=== PATIENT | male | born 1950 | race Caucasian/White ===

== ENCOUNTER 2020-10-05 05:51 | Inpatient (IN) | payer MEDICARE, OTHER ==
[~2020-10-05] VITALS: Ht 167.6 cm; Wt 79.4 kg
[~2020-10-05 05:51] MED LIST: ANORO ELLIPTA1 EACH INH; BRILINTA 90 MG90 MG PO; ECOTRIN81 MG PO; ENALAPRIL MALE2.5 MG PO; GABAPENTIN PO; IMDUR ER TAB 3030 MG PO; KEFLEX CAP 500500 MG PO; LANTUS100 UNIT/1 SC; LANTUS100 UNIT/1 SQ; LOPRESSOR 25 MG25 MG PO; NITROGLYCERIN0.4 MG SL; PREDNISONE20 MG PO; TRAMADOL HCL50 MG PO; ZOCOR20 MG PO
[2020-10-05 06:51] LABS: HEMOGLOBIN 15.1 gm/dl (14.0-17.5); RED BLOOD COUNT 4.79 M/UL (4.20-5.50); WHITE BLOOD COUNT 21.6 K/UL (4.5-11.0)
[2020-10-05 07:12] LABS: BUN/CREATININE RATIO 17 (0-10)
[2020-10-05] MEDS ORDERED: VENTOLIN HFA 66.7 GM INH (09:42)
[2020-10-06 03:46] LABS: RED BLOOD COUNT 4.81 M/UL (4.20-5.50); WHITE BLOOD COUNT 22.1 K/UL (4.5-11.0)
[2020-10-07 04:04] LABS: HEMOGLOBIN 14.5 gm/dl (14.0-17.5); RED BLOOD COUNT 4.65 M/UL (4.20-5.50); WHITE BLOOD COUNT 18.1 K/UL (4.5-11.0)
[2020-10-10 06:21] LABS: RED BLOOD COUNT 3.92 M/UL (4.20-5.50); WHITE BLOOD COUNT 11.5 K/UL (4.5-11.0)
[2020-10-10 06:35] LABS: HEMOGLOBIN 12.2 gm/dl (14.0-17.5)
[2020-10-11 03:19] LABS: HEMOGLOBIN 11.5 gm/dl (14.0-17.5); RED BLOOD COUNT 3.71 M/UL (4.20-5.50)
[2020-10-12 04:18] LABS: HEMOGLOBIN 12.1 gm/dl (14.0-17.5); RED BLOOD COUNT 3.94 M/UL (4.20-5.50); WHITE BLOOD COUNT 11.5 K/UL (4.5-11.0)
[2020-10-13 02:26] LABS: HEMOGLOBIN 11.8 gm/dl (14.0-17.5); RED BLOOD COUNT 3.84 M/UL (4.20-5.50); WHITE BLOOD COUNT 11.5 K/UL (4.5-11.0)
[2020-10-13] MEDS ORDERED: ZYVOX600 MG PO (15:13)
[2020-10-13] MEDS ORDERED: PERCOCET 5/325 T1 EA PO (15:17)
== END 2020-10-13 17:34 | disposition home or self-care (01) | DRG 623 ==
LOC: ER1 05:51 → M/S 08:17 → CDU 08:17 → M/S 19:04
PROVIDERS: Emergency Medicine; Physician Assistant; Physician Assistant Medical; Podiatrist Foot & Ankle Surgery; ADMIT Internal Medicine
PROC: 0QBP0ZZ Excision of Left Metatarsal, Open Approach (ICD-10-PCS; 2020-10-09)
PROC: 2W3TX1Z Immobilization of Left Foot using Splint (ICD-10-PCS; 2020-10-09)
PROC: 0QBP0ZZ Excision of Left Metatarsal, Open Approach (ICD-10-PCS; principal; 2020-10-09 16:30)
PROC: 0HRNXJ3 Replacement of Left Foot Skin with Synthetic Substitute, Full Thickness, External Approach (ICD-10-PCS; 2020-10-09 16:30)
DX: E11.69 Type 2 diabetes mellitus with other specified complication (principal); M86.672 Other chronic osteomyelitis, left ankle and foot; E87.1 Hypo-osmolality and hyponatremia; L03.116 Cellulitis of left lower limb; E11.621 Type 2 diabetes mellitus with foot ulcer; Z20.822 Contact with and (suspected) exposure to COVID-19; B95.62 Methicillin resistant Staphylococcus aureus infection as the cause of diseases classified elsewhere; E78.5 Hyperlipidemia, unspecified; J44.9 Chronic obstructive pulmonary disease, unspecified; F17.210 Nicotine dependence, cigarettes, uncomplicated; M19.011 Primary osteoarthritis, right shoulder; M75.101 Unspecified rotator cuff tear or rupture of right shoulder, not specified as traumatic; I12.9 Hypertensive chronic kidney disease with stage 1 through stage 4 chronic kidney disease, or unspecified chronic kidney disease; E11.22 Type 2 diabetes mellitus with diabetic chronic kidney disease; D72.829 Elevated white blood cell count, unspecified; N18.30 Chronic kidney disease, stage 3 unspecified; E11.40 Type 2 diabetes mellitus with diabetic neuropathy, unspecified; S43.431A Superior glenoid labrum lesion of right shoulder, initial encounter; N17.9 Acute kidney failure, unspecified; Z84.89 Family history of other specified conditions; I25.2 Old myocardial infarction; Z95.5 Presence of coronary angioplasty implant and graft; Z89.422 Acquired absence of other left toe(s); Z79.82 Long term (current) use of aspirin; Z79.4 Long term (current) use of insulin; Z79.899 Other long term (current) drug therapy
CPT/HCPCS: 36415; 71045; 73060; 73090; 73218; 73630; 73718; 80048; 80053; 80202; 81001; 82550; 82553; 82570; 82962; 83036; 83735; 83874; 84156; 84484; 85025; 85027; 87070; 87077; 87186; 87205; 93005; 93926; 94640; 94664; 94760; 96365; 96366; 96367; 96376; 99285; J0692; J2250; J2543; J2795; J3010; J3370; J7030; J7070; J7120; Q4133; U0002

== ENCOUNTER 2020-11-19 18:29 | Inpatient (IN) | payer MEDICARE, OTHER ==
[~2020-11-19] VITALS: Ht 167.6 cm; Wt 108.4 kg
[~2020-11-19 18:29] MED LIST changes: +PERCOCET 5/325 T1 EA PO; +VENTOLIN HFA 66.7 GM INH; +ZYVOX600 MG PO
[2020-11-19 19:36] LABS: HEMOGLOBIN 7.8 gm/dl (14.0-17.5); RED BLOOD COUNT 2.56 M/UL (4.20-5.50); WHITE BLOOD COUNT 13.3 K/UL (4.5-11.0)
[2020-11-19] MEDS ORDERED: ULTRAM50 MG PO (23:44)
[2020-11-20 02:37] LABS: RED BLOOD COUNT 2.2 M/UL (4.20-5.50); WHITE BLOOD COUNT 8.8 K/UL (4.5-11.0)
[2020-11-20 02:39] LABS: HEMOGLOBIN 6.9 gm/dl (14.0-17.5)
[2020-11-20 07:36] LABS: HEMOGLOBIN 6.1 gm/dl (14.0-17.5)
[2020-11-20 21:23] LABS: HEMOGLOBIN 8.7 gm/dl (14.0-17.5)
[2020-11-21 04:52] LABS: HEMOGLOBIN 8.2 gm/dl (14.0-17.5); WHITE BLOOD COUNT 9.4 K/UL (4.5-11.0)
[2020-11-21 04:54] LABS: RED BLOOD COUNT 2.71 M/UL (4.20-5.50)
[2020-11-22 04:22] LABS: HEMOGLOBIN 8.7 gm/dl (14.0-17.5); RED BLOOD COUNT 2.88 M/UL (4.20-5.50)
[2020-11-22 04:24] LABS: WHITE BLOOD COUNT 12.8 K/UL (4.5-11.0)
[2020-11-22 09:10] LABS: COMPLEMENT C3, SERUM 106 mg/dL (82-167)
[2020-11-22 14:10] LABS: ANTI-DSDNA ANTIBODIES <1 IU/mL (0-9)
[2020-11-23 03:18] LABS: HEMOGLOBIN 8.5 gm/dl (14.0-17.5); RED BLOOD COUNT 2.76 M/UL (4.20-5.50); WHITE BLOOD COUNT 10.6 K/UL (4.5-11.0)
[2020-11-23 15:11] LABS: ALBUMIN 2.6 g/dL (2.9-4.4); ALPHA-1-GLOBULIN 0.3 g/dL (0.0-0.4); ALPHA-2-GLOBULIN 0.8 g/dL (0.4-1.0); BETA GLOBULIN 1.1 g/dL (0.7-1.3); GAMMA GLOBULIN 0.6 g/dL (0.4-1.8); GLOBULIN, TOTAL 2.8 g/dL (2.2-3.9); IMMUNOGLOBULIN A, QN, SERUM 497 mg/dL (61-437); IMMUNOGLOBULIN G, QN, SERUM 841 mg/dL (603-1613); IMMUNOGLOBULIN M, QN, SERUM 50 mg/dL (20-172); M-SPIKE Not Observed g/dL (Not Observed); PROTEIN, TOTAL, SERUM 5.4 g/dL (6.0-8.5)
[2020-11-24 07:05] LABS: HEMOGLOBIN 8.4 gm/dl (14.0-17.5); RED BLOOD COUNT 2.79 M/UL (4.20-5.50)
[2020-11-24 14:14] LABS: ANTIMYELOPEROXIDASE (MPO) ABS <9.0 U/mL (0.0-9.0); ANTIPROTEINASE 3 (PR-3) ABS <3.5 U/mL (0.0-3.5); ATYPICAL PANCA <1:20 titer (Neg:<1:20); CYTOPLASMIC (C-ANCA) <1:20 titer (Neg:<1:20); PERINUCLEAR (P-ANCA) <1:20 titer (Neg:<1:20)
[2020-11-25 04:37] LABS: HEMOGLOBIN 8.4 gm/dl (14.0-17.5); RED BLOOD COUNT 2.76 M/UL (4.20-5.50); WHITE BLOOD COUNT 13.2 K/UL (4.5-11.0)
[2020-11-26 02:43] LABS: HEMOGLOBIN 8.1 gm/dl (14.0-17.5); RED BLOOD COUNT 2.64 M/UL (4.20-5.50); WHITE BLOOD COUNT 16.5 K/UL (4.5-11.0)
--- NOTE | 2020-11-26 08:55 | NUR ---
Spoke with BENEDICTO Cheung re: PICC line. Will check with Nephroloist to approve PICC.
[2020-11-26] MEDS ORDERED: HUMALOG 10100 UNITS/ SC (09:41)
[2020-11-26] MEDS ORDERED: DOCUSATE SODIU100 MG PO (09:41)
[2020-11-26] MEDS ORDERED: IPRAT-ALBUT 0.5-3 ML NEB (09:41)
[2020-11-26] MEDS ORDERED: GABAPENTIN300 MG PO (09:41)
[2020-11-27 03:27] LABS: HEMOGLOBIN 7.7 gm/dl (14.0-17.5); RED BLOOD COUNT 2.52 M/UL (4.20-5.50)
[2020-11-27 03:29] LABS: WHITE BLOOD COUNT 11.5 K/UL (4.5-11.0)
[2020-11-28 03:31] LABS: HEMOGLOBIN 8.1 gm/dl (14.0-17.5); RED BLOOD COUNT 2.7 M/UL (4.20-5.50); WHITE BLOOD COUNT 9.9 K/UL (4.5-11.0)
[2020-11-30] MEDS ORDERED: ERTAPENEM1 GM IV (13:19)
== END 2020-11-30 19:16 | disposition home health service (06) | DRG 629 ==
LOC: ER1 18:29 → M/S 11-20 00:06
PROVIDERS: Emergency Medicine; Internal Medicine; Internal Medicine Nephrology; Podiatrist Foot & Ankle Surgery; ADMIT Internal Medicine
PROC: 30233N1 Transfusion of Nonautologous Red Blood Cells into Peripheral Vein, Percutaneous Approach (ICD-10-PCS; 2020-11-20)
PROC: 0HRNXK3 Replacement of Left Foot Skin with Nonautologous Tissue Substitute, Full Thickness, External Approach (ICD-10-PCS; 2020-11-25)
PROC: 0QBP0ZZ Excision of Left Metatarsal, Open Approach (ICD-10-PCS; principal; 2020-11-25 13:00)
DX: E11.69 Type 2 diabetes mellitus with other specified complication (principal); M86.8X7 Other osteomyelitis, ankle and foot; Z16.12 Extended spectrum beta lactamase (ESBL) resistance; E11.40 Type 2 diabetes mellitus with diabetic neuropathy, unspecified; N17.9 Acute kidney failure, unspecified; E11.621 Type 2 diabetes mellitus with foot ulcer; L97.529 Non-pressure chronic ulcer of other part of left foot with unspecified severity; Z20.822 Contact with and (suspected) exposure to COVID-19; B96.20 Unspecified Escherichia coli [E. coli] as the cause of diseases classified elsewhere; B96.1 Klebsiella pneumoniae [K. pneumoniae] as the cause of diseases classified elsewhere; E11.21 Type 2 diabetes mellitus with diabetic nephropathy; I25.10 Atherosclerotic heart disease of native coronary artery without angina pectoris; I12.9 Hypertensive chronic kidney disease with stage 1 through stage 4 chronic kidney disease, or unspecified chronic kidney disease; M54.5 Low back pain; E11.22 Type 2 diabetes mellitus with diabetic chronic kidney disease; D63.1 Anemia in chronic kidney disease; N13.9 Obstructive and reflux uropathy, unspecified; N18.32 Chronic kidney disease, stage 3b; E78.5 Hyperlipidemia, unspecified; R53.81 Other malaise; J44.9 Chronic obstructive pulmonary disease, unspecified; F17.210 Nicotine dependence, cigarettes, uncomplicated; Z83.79 Family history of other diseases of the digestive system; Z86.14 Personal history of Methicillin resistant Staphylococcus aureus infection; Z95.5 Presence of coronary angioplasty implant and graft; Z79.82 Long term (current) use of aspirin; Z79.4 Long term (current) use of insulin; Z79.899 Other long term (current) drug therapy
CPT/HCPCS: 0240U; 36415; 36430; 71045; 72131; 73630; 73718; 80048; 80053; 80202; 81001; 82570; 82607; 82728; 82746; 82784; 82962; 83520; 83540; 83550; 83605; 83690; 84153; 84155; 84156; 84165; 84300; 84484; 85014; 85018; 85025; 85045; 85610; 85652; 85730; 86140; 86160; 86225; 86256; 86334; 86850; 86900; 86901; 86920; 87040; 87070; 87077; 87086; 87186; 87205; 89050; 94640; 94664; 94760; 96365; 96366; 96367; 97116-GP-CQ; 97162; 97166; 97530-GP-CQ; 99285; J1335; J1644; J2001; J2250; J2405; J2543; J2704; J2795; J3010; J3370; J7030; J7070; J7120; P9016; Q4133

== ENCOUNTER → 2020-12-01 | Outpatient (CLI) | payer MEDICARE, OTHER ==
[~2020-12-01] VITALS: Ht 167.6 cm; Wt 81.6 kg
[~2020-12-01] MED LIST changes: +AMLODIPINE BESYL5 MG PO; +CLOPIDOGREL75 MG PO; +DOCUSATE SODIU100 MG PO; +DOXYCYCLINE HY100 M2 PO; +ERTAPENEM1 GM IV; +GABAPENTIN300 MG PO; +GABAPENTIN800 MG PO; +HUMALOG 10100 UNITS/ SC; +IPRAT-ALBUT 0.5-3 ML NEB; +LOPRESSOR 50 MG50 MG PO; +OMNICEF 300 MG300 MG PO; +ULTRAM50 MG PO; +VASOTEC 2.5 MG2.5 MG PO; +Voltaren Gel 1% TOP
== END ==
LOC: OPSV 13:32
DX: M86.9 Osteomyelitis, unspecified (principal)
CPT/HCPCS: 96365; J1335

== ENCOUNTER → 2020-12-02 | Outpatient (CLI) | payer MEDICARE, OTHER ==
[~2020-12-02] VITALS: Ht 167.6 cm; Wt 81.6 kg
== END ==
LOC: OPSV 13:00
DX: M86.9 Osteomyelitis, unspecified (principal)
CPT/HCPCS: 96365; J1335

== ENCOUNTER → 2020-12-03 | Outpatient (CLI) | payer MEDICARE, OTHER | LOC: OPSV 13:00 | DX: M86.9 Osteomyelitis, unspecified (principal) | CPT/HCPCS: 96365; J1335 ==

== ENCOUNTER → 2020-12-04 | Outpatient (CLI) | payer MEDICARE, OTHER ==
[~2020-12-04] VITALS: Ht 167.6 cm; Wt 81.6 kg
== END ==
LOC: OPSV 12:55
DX: M86.9 Osteomyelitis, unspecified (principal)
CPT/HCPCS: 96365; J1335

== ENCOUNTER → 2020-12-05 | Outpatient (CLI) | payer MEDICARE, OTHER ==
[~2020-12-05] VITALS: Ht 167.6 cm; Wt 81.6 kg
== END ==
LOC: OPSV 08:00
DX: M86.9 Osteomyelitis, unspecified (principal)
CPT/HCPCS: 96365; J1335

== ENCOUNTER → 2020-12-06 | Outpatient (CLI) | payer MEDICARE, OTHER ==
[~2020-12-06] VITALS: Ht 167.6 cm; Wt 81.6 kg
== END ==
LOC: OPSV 07:18
DX: M86.9 Osteomyelitis, unspecified (principal)
CPT/HCPCS: 96365; J1335

== ENCOUNTER → 2020-12-08 | Outpatient (CLI) | payer MEDICARE, OTHER ==
[~2020-12-08] VITALS: Ht 167.6 cm; Wt 81.6 kg
== END ==
LOC: OPSV 13:00
DX: M86.9 Osteomyelitis, unspecified (principal)
CPT/HCPCS: 96365; J1335

== ENCOUNTER → 2020-12-09 | Outpatient (CLI) | payer MEDICARE, OTHER ==
[~2020-12-09] VITALS: Ht 167.6 cm; Wt 81.6 kg
== END ==
LOC: OPSV 13:00
DX: M86.9 Osteomyelitis, unspecified (principal)
CPT/HCPCS: 96365; J1335

== ENCOUNTER → 2020-12-10 | Outpatient (CLI) | payer MEDICARE, OTHER | LOC: OPSV 12:39 | DX: M86.9 Osteomyelitis, unspecified (principal) | CPT/HCPCS: 96365; J1335 ==

== ENCOUNTER → 2020-12-11 | Outpatient (CLI) | payer MEDICARE, OTHER | LOC: OPSV 12:53 | DX: M86.9 Osteomyelitis, unspecified (principal) | CPT/HCPCS: 96365; J1335 ==

== ENCOUNTER → 2020-12-12 | Outpatient (CLI) | payer MEDICARE, OTHER ==
[~2020-12-12] VITALS: Ht 167.6 cm; Wt 81.6 kg
== END ==
LOC: OPSV 07:50
DX: M86.9 Osteomyelitis, unspecified (principal)
CPT/HCPCS: 96365; J1335

== ENCOUNTER → 2020-12-14 | Outpatient (CLI) | payer MEDICARE, OTHER ==
[~2020-12-14] VITALS: Ht 167.6 cm; Wt 81.6 kg
== END ==
LOC: OPSV 12:53
DX: M86.9 Osteomyelitis, unspecified (principal)
CPT/HCPCS: 96365; J1335

== ENCOUNTER → 2020-12-15 | Outpatient (CLI) | payer MEDICARE, OTHER ==
[~2020-12-15] VITALS: Ht 167.6 cm; Wt 81.6 kg
== END ==
LOC: OPSV 13:00
DX: M86.9 Osteomyelitis, unspecified (principal)
CPT/HCPCS: 96365; J1335

== ENCOUNTER → 2020-12-16 | Outpatient (CLI) | payer MEDICARE, OTHER ==
[~2020-12-16] VITALS: Ht 167.6 cm; Wt 81.6 kg
== END ==
LOC: OPSV 12:03
DX: M86.9 Osteomyelitis, unspecified (principal)
CPT/HCPCS: 96365; J1335

== ENCOUNTER → 2020-12-18 | Outpatient (CLI) | payer MEDICARE, OTHER ==
[~2020-12-18] VITALS: Ht 167.6 cm; Wt 81.6 kg
== END ==
LOC: OPSV 13:00
DX: M86.9 Osteomyelitis, unspecified (principal)
CPT/HCPCS: 96365; J1335

== ENCOUNTER → 2020-12-19 | Outpatient (CLI) | payer MEDICARE, OTHER ==
[~2020-12-19] VITALS: Ht 167.6 cm; Wt 81.6 kg
== END ==
LOC: OPSV 08:00
DX: M86.9 Osteomyelitis, unspecified (principal)
CPT/HCPCS: 96365; J1335

== ENCOUNTER → 2020-12-20 | Outpatient (CLI) | payer MEDICARE, OTHER | LOC: OPSV 07:37 | DX: M86.9 Osteomyelitis, unspecified (principal) | CPT/HCPCS: 96365; J1335 ==

== ENCOUNTER → 2020-12-22 | Outpatient (CLI) | payer MEDICARE, OTHER ==
[~2020-12-22] VITALS: Ht 167.6 cm; Wt 81.6 kg
== END ==
LOC: OPSV 13:00
DX: M86.9 Osteomyelitis, unspecified (principal)
CPT/HCPCS: 96365; J1335

== ENCOUNTER → 2020-12-23 | Outpatient (CLI) | payer MEDICARE, OTHER ==
[~2020-12-23] VITALS: Ht 167.6 cm; Wt 81.6 kg
== END ==
LOC: OPSV 13:00
DX: M86.9 Osteomyelitis, unspecified (principal)
CPT/HCPCS: 96365; J1335

== ENCOUNTER → 2020-12-25 | Outpatient (CLI) | payer MEDICARE, OTHER | LOC: OPSV 10:49 | DX: M86.9 Osteomyelitis, unspecified (principal) | CPT/HCPCS: 96365; J1335 ==

== ENCOUNTER → 2020-12-27 | Outpatient (CLI) | payer MEDICARE, OTHER ==
[~2020-12-27] VITALS: Ht 167.6 cm; Wt 81.6 kg
== END ==
LOC: OPSV 08:00
DX: M86.9 Osteomyelitis, unspecified (principal)
CPT/HCPCS: 96365; J1335

== ENCOUNTER → 2020-12-28 | Outpatient (CLI) | payer MEDICARE, OTHER ==
[~2020-12-28] VITALS: Ht 167.6 cm; Wt 81.6 kg
== END ==
LOC: OPSV 12:48
DX: M86.9 Osteomyelitis, unspecified (principal)
CPT/HCPCS: 96365; J1335

== ENCOUNTER → 2020-12-30 | Outpatient (CLI) | payer MEDICARE, OTHER ==
[~2020-12-30] VITALS: Ht 167.6 cm; Wt 81.6 kg
== END ==
LOC: OPSV 12:11
DX: M86.9 Osteomyelitis, unspecified (principal)
CPT/HCPCS: 96365; J1335

== ENCOUNTER 2021-01-13 16:31 | Inpatient (IN) | payer MEDICARE, OTHER ==
[~2021-01-13] VITALS: Ht 172.7 cm; Wt 77.6 kg
[~2021-01-13 16:31] MED LIST changes: -AMLODIPINE BESYL5 MG PO; -CLOPIDOGREL75 MG PO; -DOXYCYCLINE HY100 M2 PO; -GABAPENTIN800 MG PO; -LOPRESSOR 50 MG50 MG PO; -OMNICEF 300 MG300 MG PO; -VASOTEC 2.5 MG2.5 MG PO; -Voltaren Gel 1% TOP
[2021-01-13 17:58] LABS: HEMOGLOBIN 13.3 gm/dl (14.0-17.5); RED BLOOD COUNT 4.39 M/UL (4.20-5.50); WHITE BLOOD COUNT 16.9 K/UL (4.5-11.0)
[2021-01-13 18:18] LABS: BUN/CREATININE RATIO 17 (0-10)
[2021-01-14] MEDS ORDERED: GABAPENTIN800 MG PO (14:42)
[2021-01-14] MEDS ORDERED: ULTRAM50 MG PO (14:43)
[2021-01-14] MEDS ORDERED: VASOTEC 2.5 MG2.5 MG PO (14:45)
[2021-01-15 04:24] LABS: HEMOGLOBIN 12.4 gm/dl (14.0-17.5); RED BLOOD COUNT 4.06 M/UL (4.20-5.50); WHITE BLOOD COUNT 13.8 K/UL (4.5-11.0)
[2021-01-15 06:20] LABS: ACINETOBACTER BAUMANNII Not Detected (Negative); CANDIDA ALBICANS Not Detected (Negative); CANDIDA KRUSEI Not Detected (Negative); CANDIDA TROPICALIS Not Detected (Negative); ENTEROCOCCUS Not Detected (Negative); ESCHERICHIA COLI Not Detected (Negative); HAEMOPHILUS INFLUENZAE Not Detected (Negative); KLEBSIELLA OXYTOCA Not Detected (Negative); KLEBSIELLA PNEUMONIAE Not Detected (Negative); KPC-CARBAPENEM-RESISTANCE GENE Not Detected (Negative); PROTEUS Not Detected (Negative); PSEUDOMONAS AERUGINOSA Not Detected (Negative); SERRATIA MARCESANS Not Detected (Negative); STAPHYLOCOCCUS AUREUS Not Detected (Negative); STREP AGALACTIAE (GROUP B) Not Detected (Negative); STREP PYOGENES (GROUP A) Not Detected (Negative); STREPTOCOCCUS Not Detected (Negative); vanA/B (VANCOMYCIN RESIST GENE Not Detected (Negative)
[2021-01-15 07:50] LABS: STAPHYLOCOCCUS DETECTED (Negative); mecA (METHICILLIN RESIST GENE DETECTED (Negative)
[2021-01-16 04:12] LABS: RED BLOOD COUNT 3.97 M/UL (4.20-5.50); WHITE BLOOD COUNT 13.5 K/UL (4.5-11.0)
[2021-01-17 03:46] LABS: HEMOGLOBIN 11.3 gm/dl (14.0-17.5); RED BLOOD COUNT 3.83 M/UL (4.20-5.50); WHITE BLOOD COUNT 11.7 K/UL (4.5-11.0)
[2021-01-18] MEDS ORDERED: DOXYCYCLINE HY100 M2 PO (11:54)
[2021-01-18] MEDS ORDERED: CLOPIDOGREL75 MG PO (11:54)
[2021-01-18] MEDS ORDERED: LOPRESSOR 50 MG50 MG PO (11:54)
[2021-01-18] MEDS ORDERED: AMLODIPINE BESYL5 MG PO (11:54)
--- NOTE | 2021-01-18 14:28 | NUR ---
INSTRUCTED PATIENT ON NEW MEDS, FOLOW UP APPOINTMENTS, AND LAB REQ. STATED PCP IS IN [place], WILL MAKE SURE BOTH DRS. GET LAB RESULTS. VERBALIZED UNDERSTANDING OF MED CHANGES. MARCY SHETTY R.N.
== END 2021-01-18 15:25 | disposition home or self-care (01) | DRG 69 ==
LOC: ER1 16:31 → CDU 20:12 → M/S 01-14 09:37
PROVIDERS: Emergency Medicine; Family Medicine; Physician Assistant; ADMIT Internal Medicine
PROC: B24BZZ4 Ultrasonography of Heart with Aorta, Transesophageal (ICD-10-PCS; principal; 2021-01-14)
DX: G45.9 Transient cerebral ischemic attack, unspecified (principal); N18.4 Chronic kidney disease, stage 4 (severe); E87.1 Hypo-osmolality and hyponatremia; R47.01 Aphasia; N17.9 Acute kidney failure, unspecified; K21.9 Gastro-esophageal reflux disease without esophagitis; Z20.822 Contact with and (suspected) exposure to COVID-19; E11.22 Type 2 diabetes mellitus with diabetic chronic kidney disease; I12.9 Hypertensive chronic kidney disease with stage 1 through stage 4 chronic kidney disease, or unspecified chronic kidney disease; F17.210 Nicotine dependence, cigarettes, uncomplicated; R47.81 Slurred speech; E78.5 Hyperlipidemia, unspecified; I25.10 Atherosclerotic heart disease of native coronary artery without angina pectoris; J44.9 Chronic obstructive pulmonary disease, unspecified; Z95.5 Presence of coronary angioplasty implant and graft; Z86.14 Personal history of Methicillin resistant Staphylococcus aureus infection; Z91.14 Patient's other noncompliance with medication regimen; Z89.422 Acquired absence of other left toe(s); Z80.0 Family history of malignant neoplasm of digestive organs; Z71.6 Tobacco abuse counseling; Z79.82 Long term (current) use of aspirin; I25.2 Old myocardial infarction
CPT/HCPCS: ECHO; 36415; 70450; 70551; 71045; 80048; 80053; 80061; 80202; 82550; 82553; 82962; 83605; 83874; 84484; 85025; 87040; 87077; 87150; 87186; 92507; 92526; 92610; 93005; 93306; 93880; 94640; 94664; 94760; 96375; 96376; 97116-GP-CQ; 97162; 99285; G0378; J1644; J3370; J7030; J7070; U0002

== ENCOUNTER 2021-01-31 16:31 | Emergency (ER) | payer MEDICARE, OTHER ==
[~2021-01-31 16:31] MED LIST changes: +AMLODIPINE BESYL5 MG PO; +CLOPIDOGREL75 MG PO; +DOXYCYCLINE HY100 M2 PO; +GABAPENTIN800 MG PO; +LOPRESSOR 50 MG50 MG PO; +VASOTEC 2.5 MG2.5 MG PO
[2021-01-31 17:58] LABS: HEMOGLOBIN 13.1 gm/dl (14.0-17.5); RED BLOOD COUNT 4.22 M/UL (4.20-5.50); WHITE BLOOD COUNT 18.8 K/UL (4.5-11.0)
[2021-01-31] MEDS ORDERED: OMNICEF 300 MG300 MG PO (20:30)
[2021-01-31] MEDS ORDERED: Voltaren Gel 1% TOP (20:30)
== END 2021-01-31 20:45 | disposition home or self-care (01) ==
LOC: ER1 16:31
PROVIDERS: Physician Assistant Medical
DX: N39.0 Urinary tract infection, site not specified (principal); E87.6 Hypokalemia; J44.9 Chronic obstructive pulmonary disease, unspecified; I12.9 Hypertensive chronic kidney disease with stage 1 through stage 4 chronic kidney disease, or unspecified chronic kidney disease; N18.4 Chronic kidney disease, stage 4 (severe); E11.22 Type 2 diabetes mellitus with diabetic chronic kidney disease; F17.210 Nicotine dependence, cigarettes, uncomplicated
CPT/HCPCS: 71045; 72131; 80053; 81001; 83605; 83735; 85025; 87040; 87086; 94664; 96374; 96375; 99285; J0610; J0696

== ENCOUNTER 2021-05-02 16:06 | Emergency (ER) | payer MEDICARE, OTHER ==
[~2021-05-02 16:06] MED LIST changes: +OMNICEF 300 MG300 MG PO; +Voltaren Gel 1% TOP
[2021-05-02 18:13] LABS: HEMOGLOBIN 12.4 gm/dl (14.0-17.5); RED BLOOD COUNT 4.12 M/UL (4.20-5.50); WHITE BLOOD COUNT 14.9 K/UL (4.5-11.0)
[2021-05-02 18:39] LABS: BUN/CREATININE RATIO 15 (0-10)
[2021-05-02] MEDS ORDERED: OMNICEF 300 MG300 MG PO (21:04)
[2021-05-02] MEDS ORDERED: ZOFRAN ODT 4 MG4 MG SL (21:04)
== END 2021-05-02 21:30 | disposition home or self-care (01) ==
LOC: ER1 16:06
PROVIDERS: Emergency Medicine
DX: N39.0 Urinary tract infection, site not specified (principal); I10 Essential (primary) hypertension; E11.9 Type 2 diabetes mellitus without complications; F17.200 Nicotine dependence, unspecified, uncomplicated; R53.83 Other fatigue
CPT/HCPCS: 70450; 71045; 80053; 81001; 82550; 82553; 83690; 83735; 83874; 83880; 84484; 85025; 87077; 87086; 87186; 93005; 96374; 99284; J0696

== ENCOUNTER 2021-06-18 14:43 | Emergency (ER) | payer MEDICARE, OTHER ==
[~2021-06-18 14:43] MED LIST changes: +ZOFRAN ODT 4 MG4 MG SL
[2021-06-18 15:26] LABS: HEMOGLOBIN 12.1 gm/dl (14.0-17.5); RED BLOOD COUNT 4.14 M/UL (4.20-5.50); WHITE BLOOD COUNT 14.9 K/UL (4.5-11.0)
[2021-06-18] MEDS ORDERED: CEPHALEXIN500 M1 PO (17:29)
== END 2021-06-18 17:31 | disposition home or self-care (01) ==
LOC: ER1 14:43
PROVIDERS: Physician Assistant
DX: N39.0 Urinary tract infection, site not specified (principal); D72.829 Elevated white blood cell count, unspecified; H53.8 Other visual disturbances
CPT/HCPCS: 80053; 81001; 85025; 87086; 93005; 99285; J1100; J1956

== ENCOUNTER 2021-10-29 19:55 | Inpatient (IN) | payer MEDICARE, OTHER ==
[~2021-10-29] VITALS: Ht 165.1 cm; Wt 77.1 kg
[~2021-10-29 19:55] MED LIST changes: +CEPHALEXIN500 M1 PO
[2021-10-29 21:14] LABS: HEMOGLOBIN 11.5 gm/dl (14.0-17.5); RED BLOOD COUNT 3.77 M/UL (4.20-5.50)
[2021-10-29 21:16] LABS: WHITE BLOOD COUNT 39.4 K/UL (4.5-11.0)
[2021-10-29 21:39] LABS: BUN/CREATININE RATIO 17 (0-10)
[2021-10-30] MEDS ORDERED: AMLODIPINE BESY10 MG PO (10:31)
[2021-10-30] MEDS ORDERED: LANTUS SOL100 UNIT/1 SQ (10:33)
[2021-10-30] MEDS ORDERED: CLOPIDOGREL75 MG PO (10:33)
[2021-10-30] MEDS ORDERED: NITROGLYCERIN0.4 MG SL (10:35)
[2021-10-30] MEDS ORDERED: VASOTEC2.5 MG PO (10:36)
[2021-10-30 11:28] LABS: HEMOGLOBIN 9.9 gm/dl (14.0-17.5); RED BLOOD COUNT 3.35 M/UL (4.20-5.50)
[2021-10-30 11:29] LABS: WHITE BLOOD COUNT 38.3 K/UL (4.5-11.0)
[2021-10-31 08:11] LABS: HEMOGLOBIN 9.9 gm/dl (14.0-17.5); RED BLOOD COUNT 3.37 M/UL (4.20-5.50)
[2021-10-31 08:12] LABS: WHITE BLOOD COUNT 28.5 K/UL (4.5-11.0)
--- NOTE | 2021-10-31 22:15 | NUR ---
2044 PATIENT WAS FOUND IN HIS BED SMOKING, I EXPLAINED TO HIM NO SMOKING WAS PERMITTED AND NOTIFIED CHILD ADOLESCENT CARE. HOUSE SAID TO NOTIFY SECURITY AND HAVE THEM EDUCATE PATIENT. JERICA FROM SECURITY CAME TO THE FLOOR TO EDUCATE THE PATIENT.
--- NOTE | 2021-11-01 01:12 | NUR ---
DRESSING CHANGE ON PATIENT, PATIENT TOLERATED WELL.
[2021-11-01 05:46] LABS: HEMOGLOBIN 10.2 gm/dl (14.0-17.5); RED BLOOD COUNT 3.48 M/UL (4.20-5.50)
[2021-11-01 05:49] LABS: WHITE BLOOD COUNT 20.6 K/UL (4.5-11.0)
--- NOTE | 2021-11-01 15:01 | NUR ---
pt has removed his iv x 5 times. he seems to be alert answering questions appropriately says he takes it out when it is done.
--- NOTE | 2021-11-01 16:21 | NUR ---
DR SCHRADER AWARE PT HAS REMOVED 5 IV'S AND PT HAS DECLINED ANYMORE AT SI TIME.
--- NOTE | 2021-11-01 18:47 | NUR ---
pt in room with multiple bottles of pills some open and some without lids. states he only took [address] rivera called no new orders other than to monitor. bottle house cleaners supervisor Ghada called, medications taken to pharmacy and locked up.
--- NOTE | 2021-11-02 01:21 | NUR ---
DURING BEDSIDE REPORT APPROX 1824 THE PATIENT WAS LYING IN BED ON TOP OF SEVERAL PERSCRIPTION MEDICATION BOTTLES FROM HOME. WHEN ASKED IF HE TOOK ANY MEDICATION FROM THE BOTTLES THE PATIENT STATED " YES THEN STATED NO". BEING UNAWARE SYDNEE THE DAYSHIFT RN NOTIFIED THE PROVIDE, AFTER ASSESSING THE PATIENT AND OBTAINING VITALS (WERE WITH IN NORMAL LIMITS) THE PATIENT APPEARS TO BE IN NO DISTRESS AT THIS TIME. BED ALARM ACTIVATED AND I PLACED A STRIP ALARM ON CHAIR. PATIENT INSTRUCTED TO USE CALL JUNG. SYDNEE AND I CONTACTED HOUSE, PHARMACY AND PROVIDER TO INFORM THEM ABOUT PATIENT TAKING UNKNOWN AMOUNT OF HOME MEDS IF ANY. PATIENT HAS NO IV ACCESS AND IS REFUSING TO ALLOW ANYONE TO ATTEMPT ANOTHER IV. ANM FIERRO CAME AND SYDNEE SAID HE (PATIENT) IS REFUSING. I WILL CONTINUE TO ATTEMPT TO OBTAIN IV ACCESS.
[2021-11-02 06:41] LABS: RED BLOOD COUNT 3.44 M/UL (4.20-5.50); WHITE BLOOD COUNT 24.2 K/UL (4.5-11.0)
[2021-11-03 05:04] LABS: RED BLOOD COUNT 3.41 M/UL (4.20-5.50)
[2021-11-03 05:12] LABS: WHITE BLOOD COUNT 17.7 K/UL (4.5-11.0)
[2021-11-04 07:04] LABS: HEMOGLOBIN 9.3 gm/dl (14.0-17.5); RED BLOOD COUNT 3.31 M/UL (4.20-5.50); WHITE BLOOD COUNT 15.7 K/UL (4.5-11.0)
[2021-11-05 03:54] LABS: HEMOGLOBIN 9.9 gm/dl (14.0-17.5); RED BLOOD COUNT 3.46 M/UL (4.20-5.50); WHITE BLOOD COUNT 13.2 K/UL (4.5-11.0)
--- NOTE | 2021-11-05 05:57 | NUR ---
11/04/2021 @ APPROX. 20:40- Patient does not have 1:1 sitter at this time. During rounding, this RN found patient with IV pulled out, attempting to get out of bed and remove the dressing on his left foot. Abhishek DIANE called maid housekeeper to get approval to transfer pt to a different room, to be able to share a 1:1 sitter with another patient. Patient is transferred from 4106 to 4103, patient tolerated transfer well.
[2021-11-06 04:39] LABS: HEMOGLOBIN 10.5 gm/dl (14.0-17.5); RED BLOOD COUNT 3.68 M/UL (4.20-5.50); WHITE BLOOD COUNT 12.1 K/UL (4.5-11.0)
[2021-11-07 04:48] LABS: HEMOGLOBIN 9.9 gm/dl (14.0-17.5); RED BLOOD COUNT 3.41 M/UL (4.20-5.50); WHITE BLOOD COUNT 12.2 K/UL (4.5-11.0)
[2021-11-07] MEDS ORDERED: CEPHALEXIN500 MG PO (13:49)
[2021-11-07] MEDS ORDERED: ATORVASTATIN CA20 MG PO (13:49)
[2021-11-07] MEDS ORDERED: BACTRIM DS TAB1 EACH PO (13:49)
== END 2021-11-07 18:18 | disposition home health service (06) | DRG 622 ==
LOC: ER1 19:55 → CDU 10-30 04:45 → MED SURG 4 10-30 04:45
PROVIDERS: Family Medicine; Internal Medicine; Physician Assistant; ADMIT Internal Medicine
PROC: 0JBR0ZZ Excision of Left Foot Subcutaneous Tissue and Fascia, Open Approach (ICD-10-PCS; principal; 2021-11-02)
PROC: 0HBNXZZ Excision of Left Foot Skin, External Approach (ICD-10-PCS; 2021-11-03)
DX: E11.628 Type 2 diabetes mellitus with other skin complications (principal); G93.41 Metabolic encephalopathy; E11.52 Type 2 diabetes mellitus with diabetic peripheral angiopathy with gangrene; I13.0 Hypertensive heart and chronic kidney disease with heart failure and stage 1 through stage 4 chronic kidney disease, or unspecified chronic kidney disease; I50.22 Chronic systolic (congestive) heart failure; L03.116 Cellulitis of left lower limb; I96 Gangrene, not elsewhere classified; E11.69 Type 2 diabetes mellitus with other specified complication; N17.9 Acute kidney failure, unspecified; Z20.822 Contact with and (suspected) exposure to COVID-19; N18.30 Chronic kidney disease, stage 3 unspecified; W01.0XXA Fall on same level from slipping, tripping and stumbling without subsequent striking against object, initial encounter; E11.22 Type 2 diabetes mellitus with diabetic chronic kidney disease; J44.9 Chronic obstructive pulmonary disease, unspecified; F03.90 Unspecified dementia, unspecified severity, without behavioral disturbance, psychotic disturbance, mood disturbance, and anxiety; F17.210 Nicotine dependence, cigarettes, uncomplicated; E11.40 Type 2 diabetes mellitus with diabetic neuropathy, unspecified; L89.219 Pressure ulcer of right hip, unspecified stage; I25.10 Atherosclerotic heart disease of native coronary artery without angina pectoris; E78.5 Hyperlipidemia, unspecified; Z95.1 Presence of aortocoronary bypass graft; Z80.8 Family history of malignant neoplasm of other organs or systems; Z86.14 Personal history of Methicillin resistant Staphylococcus aureus infection; Z89.422 Acquired absence of other left toe(s); Z98.890 Other specified postprocedural states; Z86.73 Personal history of transient ischemic attack (TIA), and cerebral infarction without residual deficits; Z82.49 Family history of ischemic heart disease and other diseases of the circulatory system; Z79.899 Other long term (current) drug therapy; Z79.82 Long term (current) use of aspirin; Z79.4 Long term (current) use of insulin
CPT/HCPCS: 36415; 71045; 72128; 72131; 73630; 73700; 73721; 80048; 80053; 80061; 80202; 81001; 82550; 82553; 82962; 83036; 83605; 83735; 83880; 84484; 85025; 85027; 85610; 85652; 85730; 86140; 87040; 87070; 87205; 93005; 93926; 96365; 96366; 96367; 96375; 96376; 97161; 97166; 97530-GP-CQ; 99285; J1100; J1335; J1644; J2001; J2250; J2405; J2704; J3010; J3370; J7030; J7050; J7070; J7120; U0002

== ENCOUNTER 2021-11-14 14:53 | Inpatient (IN) | payer MEDICARE, OTHER ==
[~2021-11-14] VITALS: Ht 165.1 cm; Wt 77.1 kg
[~2021-11-14 14:53] MED LIST changes: +AMLODIPINE BESY10 MG PO; +ATORVASTATIN CA20 MG PO; +BACTRIM DS TAB1 EACH PO; +CEPHALEXIN500 MG PO; +LANTUS SOL100 UNIT/1 SQ; +VASOTEC2.5 MG PO
[2021-11-14 16:02] LABS: RED BLOOD COUNT 3.04 M/UL (4.20-5.50); WHITE BLOOD COUNT 14.6 K/UL (4.5-11.0)
[2021-11-14 16:44] LABS: BUN/CREATININE RATIO 9 (0-10)
[2021-11-15 00:53] LABS: HEMOGLOBIN 8.3 gm/dl (14.0-17.5); RED BLOOD COUNT 2.85 M/UL (4.20-5.50); WHITE BLOOD COUNT 11.7 K/UL (4.5-11.0)
[2021-11-15 01:21] LABS: BUN/CREATININE RATIO 9 (0-10)
--- NOTE | 2021-11-16 03:17 | NUR ---
UPON REVIEWING THE PATIENTS EMAR I NOTICED THAT HE HAD ORDERS FOR CIWA PROTOCOL. I REVIEWED THE CHART AND FOUND WRITTEN ORDERS DATED 11/14/21 AT 1904 FROM THE PROVIDER TO INITIATE THE PROTOCOL. PATIENTS URINE TOXICOLOGY SCREEN CAME BACK POSITIVE FOR ALCOHOL USE. I INITIATED THE PROTOCOL AND WILL PASS IT ALONG TO DAYSHIFT.
[2021-11-16 05:46] LABS: HEMOGLOBIN 7.8 gm/dl (14.0-17.5); RED BLOOD COUNT 2.73 M/UL (4.20-5.50); WHITE BLOOD COUNT 9.6 K/UL (4.5-11.0)
--- NOTE | 2021-11-16 05:53 | NUR ---
PATIENT REFUSED DRESSING CHANGE.
[2021-11-17 08:02] LABS: HEMOGLOBIN 8.7 gm/dl (14.0-17.5); WHITE BLOOD COUNT 11.5 K/UL (4.5-11.0)
[2021-11-17 08:05] LABS: RED BLOOD COUNT 3.01 M/UL (4.20-5.50)
[2021-11-17 12:16] LABS: HBSAG SCREEN Negative (Negative); HEP A AB, IGM Negative (Negative); HEP B CORE AB, IGM Negative (Negative); HEP C VIRUS AB <0.1 (0.0-0.9)
--- NOTE | 2021-11-17 12:19 | NUR ---
RN WAS PERFORMING MED PASS DOWN THE DUARTE FROM PATIENT'S ROOM WHEN STAFF MEMBER YELLED FOR ASSIST IN ROOM 4115. RN FOUND PATIENT SITTING ON BUTT IN FLOOR. RN AND STAFF ASSESSED PATIENT AND ASKED IF PATIENT WAS FEELING PAIN. PATIENT STATED HIS MID AND LOWER BACK HURT. RN AND STAFF ASSISTED PATIENT TO BED THEN OBTAINED VITAL SIGNS. BP 140/80, OXYGEN 95%, PULSE 86, RESPIRATIONS 18. RN PERFORMED SKIN ASSESSMENT AND OBSERVED ABRASIONS TO RIGHT BUTTOCK. PATIENT NOTED TO BE RESTING IN BED WITH EYES CLOSED DISPLAYING NO DISTRESS. SITTER CONTINUED. RN EXITED ROOM TO NOTIFY MD OF FALL. MD ORDERED CT SCANS TO THORACIC AND CERVICAL SPINE AND PELVIS.
[2021-11-18 07:57] LABS: HEMOGLOBIN 7.5 gm/dl (14.0-17.5)
[2021-11-18 08:02] LABS: RED BLOOD COUNT 2.64 M/UL (4.20-5.50); WHITE BLOOD COUNT 15.4 K/UL (4.5-11.0)
[2021-11-19 03:30] LABS: RED BLOOD COUNT 2.07 M/UL (4.20-5.50)
[2021-11-19 03:31] LABS: HEMOGLOBIN 6.1 gm/dl (14.0-17.5)
[2021-11-19 19:32] LABS: WHITE BLOOD COUNT 19.2 K/UL (4.5-11.0)
[2021-11-19 19:33] LABS: HEMOGLOBIN 9.4 gm/dl (14.0-17.5); RED BLOOD COUNT 3.18 M/UL (4.20-5.50)
[2021-11-20 08:09] LABS: HEMOGLOBIN 8.9 gm/dl (14.0-17.5); RED BLOOD COUNT 3.06 M/UL (4.20-5.50); WHITE BLOOD COUNT 14.4 K/UL (4.5-11.0)
[2021-11-21 07:33] LABS: HEMOGLOBIN 8.6 gm/dl (14.0-17.5); RED BLOOD COUNT 3.05 M/UL (4.20-5.50); WHITE BLOOD COUNT 12.8 K/UL (4.5-11.0)
[2021-11-23 04:23] LABS: RED BLOOD COUNT 3.1 M/UL (4.20-5.50); WHITE BLOOD COUNT 12.2 K/UL (4.5-11.0)
[2021-11-23] MEDS ORDERED: LEVOFLOXACIN250 MG PO (13:04)
[2021-11-23] MEDS ORDERED: FERROUS SULFAT325 M2 PO (13:04)
[2021-11-23] MEDS ORDERED: THERAGRAN M TAB1 EA PO (13:04)
[2021-11-23] MEDS ORDERED: FLOMAX 0.4 MG0.4 MG PO (13:07)
== END 2021-11-24 13:08 | disposition home health service (06) | DRG 682 ==
LOC: ER1 14:53 → CDU 18:44 → MED SURG 4 18:44
PROVIDERS: Emergency Medicine; Internal Medicine; Internal Medicine Infectious Disease; Internal Medicine Nephrology; ADMIT Internal Medicine
PROC: HZ2ZZZZ Detoxification Services for Substance Abuse Treatment (ICD-10-PCS; principal; 2021-11-16)
PROC: 30233N1 Transfusion of Nonautologous Red Blood Cells into Peripheral Vein, Percutaneous Approach (ICD-10-PCS; 2021-11-19)
DX: N17.9 Acute kidney failure, unspecified (principal); G92.8 Other toxic encephalopathy; S22.31XA Fracture of one rib, right side, initial encounter for closed fracture; R44.3 Hallucinations, unspecified; Z20.822 Contact with and (suspected) exposure to COVID-19; D62 Acute posthemorrhagic anemia; E87.2 Acidosis; M62.82 Rhabdomyolysis; K92.0 Hematemesis; I96 Gangrene, not elsewhere classified; E11.52 Type 2 diabetes mellitus with diabetic peripheral angiopathy with gangrene; T38.3X5A Adverse effect of insulin and oral hypoglycemic [antidiabetic] drugs, initial encounter; I25.10 Atherosclerotic heart disease of native coronary artery without angina pectoris; E11.69 Type 2 diabetes mellitus with other specified complication; J44.9 Chronic obstructive pulmonary disease, unspecified; I12.9 Hypertensive chronic kidney disease with stage 1 through stage 4 chronic kidney disease, or unspecified chronic kidney disease; E11.22 Type 2 diabetes mellitus with diabetic chronic kidney disease; E87.5 Hyperkalemia; G89.29 Other chronic pain; E11.649 Type 2 diabetes mellitus with hypoglycemia without coma; I73.9 Peripheral vascular disease, unspecified; F10.10 Alcohol abuse, uncomplicated; R80.9 Proteinuria, unspecified; E86.0 Dehydration; E11.621 Type 2 diabetes mellitus with foot ulcer; F17.210 Nicotine dependence, cigarettes, uncomplicated; E83.52 Hypercalcemia; W01.0XXA Fall on same level from slipping, tripping and stumbling without subsequent striking against object, initial encounter; F03.90 Unspecified dementia, unspecified severity, without behavioral disturbance, psychotic disturbance, mood disturbance, and anxiety; I25.5 Ischemic cardiomyopathy; R31.9 Hematuria, unspecified; N18.32 Chronic kidney disease, stage 3b; D50.9 Iron deficiency anemia, unspecified; R29.6 Repeated falls; L89.212 Pressure ulcer of right hip, stage 2; M54.50 Low back pain, unspecified; D63.1 Anemia in chronic kidney disease; Z95.1 Presence of aortocoronary bypass graft; Z86.14 Personal history of Methicillin resistant Staphylococcus aureus infection; Z89.412 Acquired absence of left great toe; Z79.82 Long term (current) use of aspirin; Z79.899 Other long term (current) drug therapy; L97.514 Non-pressure chronic ulcer of other part of right foot with necrosis of bone; Z89.432 Acquired absence of left foot; Z89.431 Acquired absence of right foot; L97.529 Non-pressure chronic ulcer of other part of left foot with unspecified severity; R33.8 Other retention of urine; Z79.4 Long term (current) use of insulin
CPT/HCPCS: 0240U; 36415; 36430; 70150; 70450; 71045; 72125; 72128; 72192; 80048; 80053; 80074; 80202; 80307; 81001; 82550; 82553; 82728; 82803; 82962; 83540; 83550; 83605; 83735; 83874; 83880; 84100; 84484; 85025; 85027; 86140; 86850; 86870; 86900; 86901; 86920; 86922; 87040; 93005; 97110-GP-CQ; 97116; 97116-GP-CQ; 97161; 97166; 97530; 99285; G0480; J0610; J1644; J2185; J2270; J2405; J3370; J7030; J7070; P9016

== ENCOUNTER 2022-01-10 16:20 | Inpatient (IN) | payer MEDICARE, OTHER ==
[~2022-01-10] VITALS: Ht 167.6 cm; Wt 72.6 kg
[~2022-01-10 16:20] MED LIST changes: +FERROUS SULFAT325 M2 PO; +FLOMAX 0.4 MG0.4 MG PO; +LEVOFLOXACIN250 MG PO; +THERAGRAN M TAB1 EA PO
[2022-01-10 16:44] LABS: HEMOGLOBIN 10.4 gm/dl (14.0-17.5); RED BLOOD COUNT 3.67 M/UL (4.20-5.50); WHITE BLOOD COUNT 13.1 K/UL (4.5-11.0)
[2022-01-11 03:14] LABS: HEMOGLOBIN 8.5 gm/dl (14.0-17.5); WHITE BLOOD COUNT 13.6 K/UL (4.5-11.0)
[2022-01-11] MEDS ORDERED: FERROUS SULFAT325 MG PO (10:13)
[2022-01-11] MEDS ORDERED: CIPROFLOXACIN750 MG PO (10:20)
[2022-01-12 11:03] LABS: BODY FLUID SOURCE PLEURAL; RBC (AUTOMATED) 950300 10^6; WBC (AUTOMATED) 2363 10^3
[2022-01-12 11:04] LABS: MONONUCLEAR CELLS 47.6 %; POLYMORPHONUCLEAR 52.4 %
[2022-01-13] MEDS ORDERED: LIPITOR40 MG PO (09:11)
[2022-01-13] MEDS ORDERED: NEURONTIN800 MG PO (09:12)
[2022-01-13 10:09] LABS: HEMOGLOBIN 8.5 gm/dl (14.0-17.5); RED BLOOD COUNT 2.95 M/UL (4.20-5.50); WHITE BLOOD COUNT 12.7 K/UL (4.5-11.0)
[2022-01-13] MEDS ORDERED: LOPRESSOR 25 MG25 MG PO (11:29)
[2022-01-13 16:14] LABS: ORGANISM ID Not indicated. (.); SPECIMEN SOURCE Urine (.); STREPTOCOCCUS PNEUMONIAE AG Negative (Negative)
== END 2022-01-13 13:23 | disposition home or self-care (01) | DRG 199 ==
LOC: ER1 16:20 → MED SURG 4 18:52 → CDU 18:52 → MED SURG 4 01-11 07:50
PROVIDERS: Emergency Medicine; Internal Medicine; ADMIT Internal Medicine
PROC: 0W993ZZ Drainage of Right Pleural Cavity, Percutaneous Approach (ICD-10-PCS; principal; 2022-01-12)
PROC: BB4BZZZ Ultrasonography of Pleura (ICD-10-PCS; 2022-01-12)
PROC: B24BZZZ Ultrasonography of Heart with Aorta (ICD-10-PCS; 2022-01-12)
DX: S27.1XXA Traumatic hemothorax, initial encounter (principal); I50.33 Acute on chronic diastolic (congestive) heart failure; J96.01 Acute respiratory failure with hypoxia; Z20.822 Contact with and (suspected) exposure to COVID-19; J90 Pleural effusion, not elsewhere classified; S22.31XA Fracture of one rib, right side, initial encounter for closed fracture; N17.9 Acute kidney failure, unspecified; I13.0 Hypertensive heart and chronic kidney disease with heart failure and stage 1 through stage 4 chronic kidney disease, or unspecified chronic kidney disease; M86.671 Other chronic osteomyelitis, right ankle and foot; Z16.12 Extended spectrum beta lactamase (ESBL) resistance; E78.5 Hyperlipidemia, unspecified; E11.621 Type 2 diabetes mellitus with foot ulcer; E11.69 Type 2 diabetes mellitus with other specified complication; E11.21 Type 2 diabetes mellitus with diabetic nephropathy; D50.9 Iron deficiency anemia, unspecified; D63.1 Anemia in chronic kidney disease; N40.0 Benign prostatic hyperplasia without lower urinary tract symptoms; J44.9 Chronic obstructive pulmonary disease, unspecified; F17.210 Nicotine dependence, cigarettes, uncomplicated; N18.31 Chronic kidney disease, stage 3a; I25.10 Atherosclerotic heart disease of native coronary artery without angina pectoris; E11.51 Type 2 diabetes mellitus with diabetic peripheral angiopathy without gangrene; W18.30XA Fall on same level, unspecified, initial encounter; R00.8 Other abnormalities of heart beat; R29.6 Repeated falls; Z99.81 Dependence on supplemental oxygen; Z79.4 Long term (current) use of insulin; Y93.9 Activity, unspecified; Z95.5 Presence of coronary angioplasty implant and graft; Z89.422 Acquired absence of other left toe(s); Z82.49 Family history of ischemic heart disease and other diseases of the circulatory system
CPT/HCPCS: ECHO; 36415; 70450; 70551; 71045; 80048; 80053; 80061; 81001; 82140; 82550; 82553; 82962; 83036; 83540; 83550; 83605; 83735; 83880; 84100; 84484; 85025; 85027; 86140; 87040; 87070; 87086; 87205; 87278; 87899; 89051; 93005; 93270; 93306; 93880; 96365; 96375; 96376; 97161; 97165; 99285; C1729; G0378; G0480; J1756; J2543; J7030; U0002

== ENCOUNTER 2022-01-24 15:14 | Emergency (ER) | payer MEDICARE, OTHER ==
[~2022-01-24 15:14] MED LIST changes: +CIPROFLOXACIN750 MG PO; +FERROUS SULFAT325 MG PO; +LIPITOR40 MG PO; +NEURONTIN800 MG PO
[2022-01-24 17:03] LABS: HEMOGLOBIN 9.2 gm/dl (14.0-17.5); RED BLOOD COUNT 3.27 M/UL (4.20-5.50); WHITE BLOOD COUNT 12.9 K/UL (4.5-11.0)
== END 2022-01-25 08:16 | disposition home or self-care (01) ==
LOC: ER1 15:14
PROVIDERS: Nurse Practitioner
DX: J90 Pleural effusion, not elsewhere classified (principal); N28.9 Disorder of kidney and ureter, unspecified; Z20.822 Contact with and (suspected) exposure to COVID-19; I11.9 Hypertensive heart disease without heart failure; E11.9 Type 2 diabetes mellitus without complications; E78.5 Hyperlipidemia, unspecified; I25.2 Old myocardial infarction; J44.9 Chronic obstructive pulmonary disease, unspecified; F17.210 Nicotine dependence, cigarettes, uncomplicated; Z79.82 Long term (current) use of aspirin; Z79.02 Long term (current) use of antithrombotics/antiplatelets; Z95.5 Presence of coronary angioplasty implant and graft
CPT/HCPCS: 0240U; 36600; 70450; 71045; 80053; 81001; 82550; 82553; 82803; 83880; 84484; 85025; 93005; 96374; 99285; J1940